=== PATIENT | male | born 1960 | race African-American/Black ===

== ENCOUNTER 2022-08-30 08:55 | Outpatient (REF) | payer MEDICAID, SELFPAY ==
[2022-08-30 11:29] LABS: MANUAL DIFF FLAG NO
[2022-08-30 11:37] LABS: Basophils Percent Auto 0.7 % (0-2); Eosinophils Absolute Auto 0.1 X10*3/uL (0.0-0.4); Hematocrit 49.6 % (42.0-52.0); Hemoglobin 16.7 g/dl (14.0-18.0); Imm Gran Abs Auto 0.01 X10*3/uL (0.00-0.03); Imm Gran Pct Auto 0.2 % (0.0-0.4); Lymphocytes Absolute Auto 1.2 X10*3/uL (1.2-4.9); Lymphocytes Percent Auto 19.2 % (20-40); Mean Corpuscular HGB Conc 33.7 g/dl (31.0-36.0); Mean Corpuscular Hemoglobin 29.3 pg (27.0-33.0); Mean Corpuscular Volume 87.2 fL (80.0-98.0); Monocytes Absolute Auto 0.8 X10*3/uL (0.1-1.2); Monocytes Percent Auto 13.1 % (2-11); Neutrophils Percent Auto 65.8 % (45-73); Platelet Count 206 X10*3/uL (160-400); Red Blood Count 5.69 X10*6/uL (4.60-5.80); Red Cell Distribution Width 13.5 % (11.0-16.0)
[2022-08-30 11:55] LABS: Amphetamine Screen Urine Not Detected (Not Detect); Barbiturates, Urine Not Detected (Not Detect); Benzodiazepines Screen Urine POSITIVE (Not Detect); Cannabinoid Screen Urine Not Detected (Not Detect); Cocaine Screen Urine Not Detected (Not Detect); Fentanyl, urine Not Detected (Not Detect); Opiate Screen Urine Not Detected (Not Detect); Phencyclidine Screen Urine Not Detected (Not Detect)
[2022-08-30 12:36] LABS: Estimated Average Glucose 100 mg/dL; Hemoglobin A1c % 5.1 %
[2022-08-30 12:52] LABS: Prostate Specific Antigen 0.51 ng/mL (<0.05-4.0)
[2022-08-30 13:00] LABS: Syphilis Screen Reactive (Nonreactive)
[2022-08-30 13:12] LABS: Alanine Aminotransferase 52 U/L (0-40); Albumin Level 4.2 g/dL (3.5-5.0); Alkaline Phosphatase 71 U/L (39-117); Anion Gap 14 (12-20); Aspartate Amino Transferase 48 U/L (5-37); Bilirubin Total 1.2 mg/dL (0.0-1.0); Blood Urea Nitrogen 12 mg/dL (9-16); Calcium 9.6 mg/dL (8.4-10.2); Carbon Dioxide 25 mmol/L (22-29); Chloride 102 mmol/L (96-108); Cholesterol 220 mg/dL; Estimated Glomerular Filt Rate > 60; Glucose Fasting 100 mg/dL (60-99); HDL Cholesterol 94 mg/dL; LDL Cholesterol Calculated 104 mg/dl; Sodium 137 mmol/L (135-145); Total Protein 7.3 g/dL (6.5-8.0); Triglycerides 111 mg/dL
[2022-08-30 13:14] LABS: Free T4 (Free Thyroxine) 0.75 ng/dL (0.71-1.85)
[2022-08-30 13:45] LABS: CT PCR NOT DETECTED (Not Detect.); NG PCR NOT DETECTED (Not Detect.)
[2022-09-02 05:11] LABS: ~HepC Num1 0.05 S/CO (0.00-0.79); ~Hepatitis C Antibody Nonreactive (Nonreactive)
[2022-09-02 05:12] LABS: HBc Num1 0.18 S/CO (0.00-0.79); HBsAGNum1 0.25 S/CO (0.00-0.99); HIV AB/AG Nonreactive (Nonreactive); HIV Num 1 0.05 S/CO (0.00-0.99); Hepatitis B Core Antibody Nonreactive (Nonreactive); Hepatitis B Surface Antigen Negative (Negative)
[2022-09-02 05:50] LABS: HBS Num1 0.06 mIU/mL (0-7.99); ~Hepatitis B Surface Antibody NONREACTIVE (Nonreactive)
[2022-09-04 14:23] LABS: RPR Quantitative Non-Reactive (Nonreactive); T.Pallidum Particle Agg Test Non-Reactive (Nonreactive)
== END 2022-08-30 08:56 | disposition home or self-care (01) ==
LOC: HO.CHCLDS 08:55
PROVIDERS: Visit Provider Student in an Organized Health Care Education/Training Program
DX: Z00.00 Encounter for general adult medical examination without abnormal findings (principal); Z12.5 Encounter for screening for malignant neoplasm of prostate; Z11.4 Encounter for screening for human immunodeficiency virus [HIV]; M25.571 Pain in right ankle and joints of right foot; G89.29 Other chronic pain
CPT/HCPCS: 0353U; 36415; 80053; 80061; 80307; 82306; 83036; 84153; 84439; 85025; 86592; 86704; 86706; 86780; 86803; 87340; 87389

== ENCOUNTER 2024-11-04 08:31 | Outpatient (REF) | payer MEDICAID, SELFPAY ==
--- OUTSIDE RECORDS SUMMARY | 2024-10-28 09:00 | XMS_ITS | Encounter Summary ---
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 11/04/24 Procedure(s): XR lumbar spine 2-3V Accession Number(s): [id number] cc: Jaqueline Webb MD Reason for Exam: pt with ongoing lower back pain EXAMINATION: XR LUMBOSACRAL SPINE CLINICAL INFORMATION: pt with ongoing lower back pain COMPARISON: None available. TECHNIQUE: AP and lateral views FINDINGS: Multilevel marginal osteophyte formation and endplate sclerosis throughout the lower thoracic and lumbar spine. No acute cortical disruption or gross malalignment. Facet joint hypertrophy at L5-S1. No lytic or blastic lesions. Vascular calcifications, likely aorta and iliac arteries. XR/XR lumbar spine 2-3V IMPRESSION: Multilevel thoracolumbar spondylosis without acute fracture or listhesis. Atherosclerosis disease. Electronically signed by: Jeb Landry MD 11/04/2024 09:00 AM EDT RP Dictated By: Jeb Chiang MD Signed By: <Electronically signed by Jeb Zavala MD in [place]> 11/04/24 0900 DD/ 0850 TD/TT: 11/04/24 0854 Behavior Support Specialist: Procedure Note Donotuseinterpreter, Image - 11/04/[address] [address] XRay Report Signed Patient: Christo Hendrickson#: [id number] : 1960Acct:[id number] Age/Sex: 64 / MADM Date: 11/04/24 Loc: [facility] Attending Dr: Jaqueline Prieto MD Ordering Physician: Jaqueline Webb MD Date of Service: 11/04/24 Procedure(s): XR lumbar spine 2-3V Accession Number(s): [id number] cc: Jaqueline Webb MD Reason for Exam: pt with ongoing lower back pain EXAMINATION: XR LUMBOSACRAL SPINE CLINICAL INFORMATION: pt with ongoing lower back pain COMPARISON: None available. TECHNIQUE: AP and lateral views FINDINGS: Multilevel marginal osteophyte formation and endplate sclerosis throughout the lower thoracic and lumbar spine. No acute cortical disruption or gross malalignment. Facet joint hypertrophy at L5-S1. No lytic or blastic lesions. Vascular calcifications, likely aorta and iliac arteries. XR/XR lumbar spine 2-3V IMPRESSION: Multilevel thoracolumbar spondylosis without acute fracture or listhesis. Atherosclerosis disease. Electronically signed by: Jeb Landry MD 11/04/2024 09:00 AM EDT RP Dictated By: Jeb Chiang MD Signed By: <Electronically signed by Jeb Zavala MDin OV> 11/04/24 0900 DD/ 0850 TD/TT: 11/04/24 0854 Behavior Support Specialist: Jaqueline Prieto MD IMG XR PROCEDURES Edited Result - Final documented in this encounter Visit Diagnoses Diagnosis Health care maintenance- Primary Body mass index (BMI) 30.0-30.9, adult Unspecified sexually transmitted disease Encounter for screening for other viral diseases Dietary counseling Dietary surveillance and counseling Exercise counseling Colon cancer screening Special screening for malignant neoplasms, colon Loud snoring Generalized abdominal pain Abdominal pain, generalized Chronic low back pain, unspecified back pain laterality, unspecified whether sciatica present Skin rash Rash and other nonspecific skin eruption Obesity (BMI 30-39.9) Elevated LFTs Other abnormal blood chemistry High risk heterosexual behavior Tobacco abuse Tobacco use disorder Alcohol abuse Nondependent alcohol abuse, unspecified drinking behavior At high risk for falls documented in this encounter Additional Health Concerns Assessment Noted Time PHQ-9 Depression Total Score: 19 025 9:17 AM EDT documented as of this encounter Care Teams Recovery Manager Relationship Specialty Start Date End Date Jaqueline Webb MD [address] [place] [phone] PCP - General Internal Medicine 07/02/22 Tom Chopra, MAGAN [address] [place] [phone] Registered Nurse Family Medicine 08/09/24 Yee Malone 08/09/24 documented as of this encounter
--- NOTE | ~2024-11-04 | XR_ITS ---
EXAMINATION: XR LUMBOSACRAL SPINE CLINICAL INFORMATION: pt with ongoing lower back pain COMPARISON: None available. TECHNIQUE: AP and lateral views FINDINGS: Multilevel marginal osteophyte formation and endplate sclerosis throughout the lower thoracic and lumbar spine. No acute cortical disruption or gross malalignment. Facet joint hypertrophy at L5-S1. No lytic or blastic lesions. Vascular calcifications, likely aorta and iliac arteries. XR/XR lumbar spine 2-3V IMPRESSION: Multilevel thoracolumbar spondylosis without acute fracture or listhesis. Atherosclerosis disease. Electronically signed by: Jeb Landry MD 11/04/2024 09:00 AM EDT
--- OUTSIDE RECORDS SUMMARY | 2024-11-04 09:39 | XMS_ITS | Encounter Summary ---
Author Organization [employer] Address [address] [facility] [address] [place] [address] Care Team Providers Care Inspector Type Name Role Phone Jaqueline Webb MD Primary Care Pro vider Tom Chopra RN Unavailable [phone] Yee Malone Unavailable Reason for Visit * Reason Onset Date Comments Call Back Request 09/27/2024 Encounter Details Date Type Department Care Team ([facility] st Contact Info) Description 09/27/2024 Telephone [facility] [address] [place], [place] [phone] Jaqueline Webb MD [address] [place], [place] [phone] Call Back Request Social History Tobacco Use Types Packs/Day Years Used Date Smoking Tobacco: Some Days Cigarettes Smokeless Tobacco: Never Comments:Started smoking las t week ---10 cigarettes a day x 3 days today smoked 1 Alcohol Use Standard Drinks/Week Comments Yes 0 (1 standard drink = 0.6 oz pur e alcohol) social Depression Answer Date Recorded Patient Health Questionnaire-9 Score 13 07/31/2022 Housing Stability Answer Date Recorded What is [...] Answer Date Recorded Patient Health Questionnaire-2 Score 4 07/31/2022 Internet Access Answer Date Recorded Internet Access Q1 Yes 09/10/2024 Internet Access Q2 Not on file 09/10/2024 Sex and Gender Information Value Date Recorded Sex Assigned at Male 12/17/2021 10:33 AM EDT Legal Sex Male 10:33 AM EDT Gender Identity Male 12/17/2021 10:33 AM EDT Sexual Orientation Straight 12/17/2021 10 :33 AM EDT documented as of this encounter Miscellaneous Notes * Telephone Encounter - Jeff Chu - 09/27/2024 10:35 AM EDT Pt returning RN tom Chopra Call documented in this encounter Plan of Treatment Upcoming Encounters Date Type Department Care Team (Late st Contact Info) Description 12/08/2024 11:15 AM EDT Office Visit [facility] [address] [place] [phone] Jaqueline Webb MD [address] [place] [phone] documented as of this encounter Visit Diagnoses Not on filedocumented in this encounter Additional Health Concerns Assessment Noted Time PHQ-9 Depression Total Score: 13 023 2:25 PM EDT documented as of this encounter Care Teams Inspector Type Relationship Specialty Start Date End Date Jaqueline Webb MD [address] [place] [phone] PCP - General Internal Medicine 07/02/22 Tom Chopra, RN [address] [place] [id number] Registered Nurse Family Medicine 08/09/24 Yee Malone 08/09/24 documented as of this encounter
--- OUTSIDE RECORDS SUMMARY | 2024-11-04 09:40 | XMS_ITS ---
Author Organization [employer] Address [address] [facility] [address] [place] [address] Care Team Providers Care Lot Attendant Name Role Phone Jaqueline Webb MD Primary Care Pro vider Tom Chopra RN Unavailable [phone] Yee Malone Unavailable CM Complex Status:Outreach In Progress (Enrolling) Start date:08/09/2024 Enrollment reason:ADT Feed Overview ADT-admitted [facility] 08/06/24 Case Team Name Relationship Phone Tom Chopra RN(Responsible Staff) Registered Ginny ramirez [phone] Continued Care and Services Coordination
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
--- OUTSIDE RECORDS SUMMARY | 2024-11-04 09:40 | XMS_ITS | Encounter Summary ---
Author Organization [employer] Address [address] [facility] 7t [place] [address] Care Team Providers Care Promotional Demonstrator Name Role Phone Jaqueline Webb MD Primary Care Pro vider Tom Chopra RN Unavailable [phone] Yee Malone Unavailable Reason for Visit * Reason Onset Date Comments Durable Medical Equipment 11/03/2024 Encounter Details Date Type Department Care Team (Late st Contact Info) Description 11/03/2024 Telephone [facility] [address] [place], [place] [phone] Jaqueline Webb MD [address] [place], [place] [phone] Durable Medical Equipment Social History Tobacco Use Types Packs/Day Years [...] Score 19 10/28/2024 Patient Health Questionnaire-9 Score 10/28/2024 Last PHQ-9: Questionnaire Data Not on [...] encounter Miscellaneous Notes * Telephone Encounter - Letitia De Souza MA - 11/03/2024 2:17 PM EDT DME for Shower chair and Walker signed and faxed to [facility] . Confirmation received and sent to scan. If patient calls to check status on above, please advise them to contact [facility] at [phone]. documented in this encounter Plan of Treatment Upcoming Encounters Date Type Department Care Team ([facility] st Contact Info) Description 12/08/2024 11:15 AM EDT Office Visit [facility] [address] [place] [address] Jaqueline Webb MD [address] [place] [phone] documented as of this encounter Visit Diagnoses Not on filedocumented in this encounter Additional Health Concerns Assessment Noted Time PHQ-9 Depression Total Score: 19 025 9:17 AM EDT documented as of this encounter Care Teams Promotional Demonstrator Relationship Specialty Start Date End Date Jaqueline Webb MD [address] [place] [phone] PCP - General Internal Medicine 07/02/22 Tom Chopra, RN [address] [place] [phone] Registered Nurse Family Medicine 08/09/24 Yee Malone 08/09/24 documented as of this encounter
--- OUTSIDE RECORDS SUMMARY | 2024-11-04 09:40 | XMS_ITS | Clinical Summary ---
Author Organization [facility] Address [address] [place] [address] Care Team Providers Care Detail Assembler Name Role Phone Unavailable Primary Care Provider Unavailabl e Social History Tobacco Use Types Packs/Day Years Used Date Smoking Tobacco: Never Assessed Sex and Gender Information Value Date Recorded Sex Assigned at Not on file Legal Sex Male 11:29 PM EST Gender Identity Not on file Sexual Orientation Not on file Plan of Treatment Health Maintenance Due Date Last Done Comments DTaP,Tdap,and Td Vaccines (1 - Tdap) 09/02/1978 Pneumococcal Vaccine: 50+ Ye ars (1 of 1 - PCV) 09/02/2009 Zoster Vaccines (1 of 2) 09/02/2009 Abdominal Aortic Aneurysm (A AA) Screen 03/18/2023 Cholesterol Screening (Lipid Panel) 03/18/2023 Colorectal Cancer Screening: Colonoscopy 03/18/2023 Hepatitis C Screening 03/18/2023 Social Influencers of Health Screening 03/18/2023 Depression Screening 02/18/2024 Falls Risk Assessment 09/02/2024 COVID-19 Vaccine (1 - 2023-2 5 season) 2024 Influenza Vaccine (#1) 2024 RSV Immunization Adult Patie nts (1 - 1-dose 75+ series) 09/02/2034 HIB [...] on patient's age to complete this topic MMR Vaccines Aged Out No longer eligi ble based on patient's age to complete this topic Meningococcal ACWY Vaccine Aged Out N o longer eligible based on patient's age to complete this topic Meningococcal B Vaccine Aged Out No l onger eligible based on patient's age to complete this topic RSV Immunization Patients Un gigi 20 months Aged Out No longer eligible b ased on patient's age to complete this topic Varicella Vaccines Aged Out No longer eligible based on patient's age to complete this topic
--- OUTSIDE RECORDS SUMMARY | 2024-11-04 09:40 | XMS_ITS | Encounter Summary ---
Author Organization [employer] Address [address] [place] [address] [address] [place] [address] Care Team Providers Care Putty Glazer Name Role Phone Rossi Min Primary Care Provider [phone] Jaqueline Webb MD Primary Care Pro vider Tom Chopra RN Unavailable [phone] Yee Malone Unavailable Encounter Details Date Type Department Care Team (Late st Contact Info) Description 04/23/2022 Telephone [facility] [address] [place] [phone] Rossi Min FNP [address] [place] [phone] Social History Tobacco Use Types Packs/Day Years Used Date Smoking Tobacco: Never Assessed Sex and Gender Information Value Date Recorded Sex Assigned at Male 12/17/2021 10:33 AM EDT Legal Sex Male 10:33 AM EDT Gender Identity Male 12/17/2021 10:33 AM EDT Sexual Orientation Straight 12/17/2021 10 :33 AM EDT documented as of this encounter Plan of Treatment Upcoming Encounters Date Type Department Care Team (Late st Contact Info) Description 12/08/2024 11:15 AM EDT Office Visit [facility] [address] [place] [phone] Jaqueline Webb MD [address] [place], [place] [phone] documented as of this encounter Visit Diagnoses Not on filedocumented in this encounter Care Teams Putty Glazer Relationship Specialty Start Date End Date Rossi Min FNP [address] [place] [address] PCP - General Family Medicine 04/18/22 07/01/22 Jaqueline Webb MD [address] [place] [address] PCP - General Internal Medicine 07/02/22 Tom Chopra RN [address] [place] [address] Registered Nurse Family Medicine 08/09/24 Yee Malone 08/09/24 documented as of this encounter
--- OUTSIDE RECORDS SUMMARY | 2024-11-04 09:40 | XMS_ITS ---
Author Organization [employer] Address [address] [facility] 7t [place] [address] Care Team Providers Care Freelance Data Entry Name Role Phone Jaqueline Webb MD Primary Care Pro vider Tom Chopra RN Unavailable Yee Malone Unavailable [facility] Status:Enrolled (Active) Start date:08/09/2024 Enrollment date:09/10/2024 Enrollment reason:ADT Feed Overview ADT-admitted [facility] 08/06/24 Case Team Name Relationship Phone Yee Malone(Responsible Staff) Continued Care and Services Coordination
--- OUTSIDE RECORDS SUMMARY | 2024-11-04 09:40 | XMS_ITS | Encounter Summary ---
Author Organization [employer] Address [address] [place] [address] Care Team Providers Care Skip Hoist Operator Name Role Phone Isabela Sanches Primary Care Provider Rossi Gonzalez Primary Care Provider [phone] Jaqueline Webb MD Primary Care Pro vider Tom Chopra RN Unavailable [phone] Yee Malone Unavailable Reason for Visit * Reason Onset Date Comments triage 03/12/2022 Encounter Details Date Type Department Care Team (Late st Contact Info) Description 03/12/2022 Telephone [facility] [address] [place] [address] Isabela Sanches FNP triage Social History Tobacco Use Types Packs/Day Years Used Date Smoking Tobacco: Never Assessed Sex and Gender Information Value Date Recorded Sex Assigned at Male 12/17/2021 10:33 AM EDT Legal Sex Male 10:33 AM EDT Gender Identity Male 12/17/2021 10:33 AM EDT Sexual Orientation Straight 12/17/2021 10 :33 AM EDT documented as of this encounter Miscellaneous Notes * Telephone Encounter - Sonam Heart RN - 03/12/2022 2:54 PM EST Call returned to patient for triage. No answer LVM to return call to [facility] triage line. * Telephone Encounter - Keyla Rubio - 03/12/2022 10:38 AM EST Symptom: Leg Pain - Not From Injury Outcome: Schedule an urgent appointment (within 1 hour) or talk to a nurse or provider soon Reason: Trouble walking The caller accepted this outcome [place] speaker documented in this encounter Plan of Treatment Upcoming Encounters Date Type Department Care Team (Late st Contact Info) Description 12/08/2024 11:15 AM EDT Office Visit [facility] [address] [place] [id number] Jaqueline Webb MD [address] [place] [phone] documented as of this encounter Visit Diagnoses Not on filedocumented in this encounter Care Teams Skip Hoist Operator Relationship Specialty Start Date End Date Isabela Sanches FNP PCP - General Family Medicine 01/16/22 04/17/22 Rossi Min FNP [address] [place] [id number] PCP - General Family Medicine 04/18/22 07/01/22 Jaqueline Webb MD [address] [place] [phone] PCP - General Internal Medicine 07/02/22 Tom Chopra, RN [address] [place] [phone] Registered Nurse Family Medicine 08/09/24 Yee Malone 08/09/24 documented as of this encounter
[2024-11-04 11:49] LABS: MANUAL DIFF FLAG NO
[2024-11-04 11:55] LABS: Hematocrit 39.0 % (42.0-52.0); Hemoglobin 12.7 g/dl (14.0-18.0); Imm Gran Abs Auto 0.00 X10*3/uL (0.00-0.03); Imm Gran Pct Auto 0.0 % (0.0-0.4); Lymphocytes Absolute Auto 1.1 X10*3/uL (1.2-4.9); Mean Corpuscular HGB Conc 32.6 g/dl (31.0-36.0); Mean Corpuscular Hemoglobin 30.5 pg (27.0-33.0); Mean Corpuscular Volume 93.8 fL (80.0-98.0); NRBC Abs Auto 0.000 X10*3/uL (0.0-0.012); NRBC Pct Auto 0.0 /100WBC (0.0-0.2); Platelet Count 146 X10*3/uL (160-400); Red Blood Count 4.16 X10*6/uL (4.60-5.80); White Blood Count 3.6 X10*3/uL (4.8-10.8)
[2024-11-04 12:08] LABS: Alanine Aminotransferase 39 U/L (0-40); Albumin Level 4.0 g/dL (3.5-5.0); Anion Gap 11 (12-20); Aspartate Amino Transferase 58 U/L (5-37); Blood Urea Nitrogen 8 mg/dL (9-16); Calcium 9.7 mg/dL (8.4-10.2); Carbon Dioxide 27 mmol/L (22-29); Chloride 108 mmol/L (96-108); Cholesterol 253 mg/dL (<200); Estimated Glomerular Filt Rate 55; Potassium 3.8 mmol/L (3.3-5.1); Sodium 142 mmol/L (135-145); Total Protein 8.0 g/dL (6.5-8.0); Triglycerides 98 mg/dL (<150)
[2024-11-04 12:09] LABS: Alkaline Phosphatase 120 U/L (39-117); HDL Cholesterol 79 mg/dL (>40); Lipase 30 U/L (8-78)
[2024-11-04 12:13] LABS: Total Hemoglobin (HGBA1C) 3333.7065 umol/L
[2024-11-04 12:28] LABS: Syphilis Screen Reactive (Nonreactive)
[2024-11-04 12:30] LABS: HBS Num1 0.00 mIU/mL (0-7.99); HBc Num1 0.34 S/CO (0.00-0.79); HBsAGNum1 0.47 S/CO (0.00-0.99); HIV Num 1 0.06 S/CO (0.00-0.99); Hepatitis B Surface Antigen Negative (Negative); ~HepC Num1 0.10 S/CO (0.00-0.79); ~Hepatitis B Surface Antibody NONREACTIVE (Nonreactive); ~Hepatitis C Antibody Nonreactive (Nonreactive)
[2024-11-04 12:34] LABS: Folate 10.0 ng/mL (> or = 4.0); Prostate Specific Antigen 0.25 ng/mL (<0.05-4.0); Vitamin B12 594 pg/mL (200-900)
[2024-11-10 13:21] LABS: T.Pallidum Particle Agg Test Non-Reactive (Nonreactive)
[2024-11-15 13:33] LABS: FIB-ALT 26 U/L (9-46); FIB-Alpha-2-Macroglobulin 325 mg/dL (106-279); FIB-Apolipoprotein A1 212 mg/dL (94-176); FIB-GGT 371 U/L (3-70); FIB-Haptoglobin 38 mg/dL (43-212); FIB-Total Bilirubin 0.9 mg/dL (0.2-1.2); Liver Fibrosis Score 0.83; Liver Fibrosis Stage F4; Nec Inflam Act Grade A0-A1; Nec Inflam Act Score 0.23
== END 2024-11-04 08:32 | disposition home or self-care (01) ==
LOC: HO.HHCX 08:31
PROVIDERS: PCP Student in an Organized Health Care Education/Training Program; Visit Provider Student in an Organized Health Care Education/Training Program
DX: Z00.00 Encounter for general adult medical examination without abnormal findings (principal); M54.50 Low back pain, unspecified; G89.29 Other chronic pain; Z68.30 Body mass index [BMI] 30.0-30.9, adult; R10.84 Generalized abdominal pain; A64 Unspecified sexually transmitted disease; Z11.59 Encounter for screening for other viral diseases; Z11.4 Encounter for screening for human immunodeficiency virus [HIV]
CPT/HCPCS: 36415; 72100; 80053; 80061; 81596; 82306; 82607; 82746; 83036; 83690; 84153; 84443; 85025; 86592; 86704; 86706; 86780; 86803; 87340; 87389

== ENCOUNTER → 2024-11-04 08:40 | Outpatient (BNV) | payer MEDICARE, MEDICAID, SELFPAY | PROVIDERS: PCP Student in an Organized Health Care Education/Training Program; Visit Provider Radiology Diagnostic Radiology | DX: M47.815 Spondylosis without myelopathy or radiculopathy, thoracolumbar region (principal); I70.90 Unspecified atherosclerosis | CPT/HCPCS: 72100 ==